=== PATIENT | female | born 1940 | race Caucasian/White ===

== ENCOUNTER 2017-06-24 08:33 | Emergency (ER) | payer OTHER ==
[~2017-06-24] VITALS: Ht 167.6 cm; Wt 72.6 kg
[~2017-06-24 08:33] MED LIST: ANTIVERT12.5 MG; ANTIVERT25 M1 PO; CEFTIN250 MG PO; DITROPAN5 MG PO; VITAMIN D2000 UNIT
[2017-06-25] MEDS ORDERED: LEVSIN/SL0.125 MG SL (07:47)
[2017-06-25] MEDS ORDERED: PEPCID40 MG PO (07:47)
== END 2017-06-25 09:44 | disposition home or self-care (01) ==
LOC: ER 08:33
DX: K52.9 Noninfective gastroenteritis and colitis, unspecified (principal)

== ENCOUNTER 2017-09-04 05:50 | Day surgery (SDC) | payer OTHER ==
[~2017-09-04 05:50] MED LIST changes: +LEVSIN/SL0.125 MG SL; +PEPCID40 MG PO
== END 2017-09-04 10:30 | disposition home or self-care (01) ==
LOC: CIR.AMB 05:50
DX: M77.12 Lateral epicondylitis, left elbow (principal)

== ENCOUNTER 2019-10-08 11:33 | Emergency (ER) | payer OTHER ==
[~2019-10-08] VITALS: Ht 162.6 cm; Wt 72.6 kg
== END 2019-10-08 16:36 | disposition home or self-care (01) ==
LOC: ER 11:33
DX: R42 Dizziness and giddiness (principal)

== ENCOUNTER 2020-07-14 14:41 | Inpatient (IN) | payer OTHER ==
[~2020-07-14] VITALS: Ht 167.6 cm; Wt 68.9 kg
[2020-07-17] MEDS ORDERED: PANTOPRAZOLE SO40 MG (07:50)
[2020-07-17] MEDS ORDERED: FLORAVANCE CAP1 EACH (07:50)
[2020-07-17] MEDS ORDERED: PRESERVISION A1 EAC1 (07:51)
[2020-07-17] MEDS ORDERED: MOMETASONE FURO15 G2 (07:51)
[2020-07-17] MEDS ORDERED: SUCRALFATE1 GM/10 ML (07:51)
[2020-07-17] MEDS ORDERED: RESTASIS1 EACH (07:51)
[2020-07-17] MEDS ORDERED: FLAXSEED OIL1000 MG (07:51)
[2020-07-17] MEDS ORDERED: SYSTANE BALANCE10 ML (07:52)
== END 2020-07-23 17:16 | disposition home or self-care (01) | DRG 392 ==
LOC: ER 14:41 → SEC-K 23:59 → SURH 23:59
PROVIDERS: ADMIT Internal Medicine; ATTEND Internal Medicine
PROC: BW21YZZ Computerized Tomography (CT Scan) of Abdomen and Pelvis using Other Contrast (ICD-10-PCS; principal; 2020-07-14)
PROC: B24BZZZ Ultrasonography of Heart with Aorta (ICD-10-PCS; 2020-07-14)
DX: K57.20 Diverticulitis of large intestine with perforation and abscess without bleeding (principal); R10.32 Left lower quadrant pain; R19.7 Diarrhea, unspecified; K21.9 Gastro-esophageal reflux disease without esophagitis; Z20.822 Contact with and (suspected) exposure to COVID-19

== ENCOUNTER 2020-09-05 06:39 | Day surgery (SDC) | payer OTHER ==
[~2020-09-05 06:39] MED LIST changes: +FLAXSEED OIL1000 MG; +FLORAVANCE CAP1 EACH; +MOMETASONE FURO15 G2; +PANTOPRAZOLE SO40 MG; +PRESERVISION A1 EAC1; +RESTASIS1 EACH; +SUCRALFATE1 GM/10 ML; +SYSTANE BALANCE10 ML
== END 2020-09-05 09:43 | disposition home or self-care (01) ==
LOC: AMB-ENDOS 06:39
PROVIDERS: ATTEND Surgery
DX: D12.2 Benign neoplasm of ascending colon (principal); Z20.822 Contact with and (suspected) exposure to COVID-19

== ENCOUNTER 2020-11-10 09:27 | Emergency (ER) | payer OTHER ==
[~2020-11-10] VITALS: Ht 167.6 cm; Wt 70.3 kg
== END 2020-11-10 19:57 | disposition home or self-care (01) ==
LOC: ER 09:27
DX: R10.13 Epigastric pain (principal); R07.89 Other chest pain

== ENCOUNTER 2020-12-05 10:00 | Inpatient (IN) | payer OTHER ==
[~2020-12-05] VITALS: Ht 167.6 cm; Wt 69.4 kg
[2020-12-11] MEDS ORDERED: VALACYCLOVIR1000 MG (08:34)
[2020-12-15] MEDS ORDERED: INTESTINEX680 M1 PO (08:28)
[2020-12-15] MEDS ORDERED: PROTONIX40 MG PO (08:29)
[2020-12-15] MEDS ORDERED: NABUMETONE750 MG PO (08:31)
[2020-12-15] MEDS ORDERED: BACTRIM DS TAB1 EACH PO (08:32)
[2020-12-15] MEDS ORDERED: ULTRACET PO (08:33)
== END 2020-12-15 15:22 | disposition home or self-care (01) | DRG 331 ==
LOC: SURH 12-11 06:05 → O/R 12-11 06:05 → SURH 12-11 09:00
PROVIDERS: ADMIT Surgery; ATTEND Surgery
PROC: 0DTN4ZZ Resection of Sigmoid Colon, Percutaneous Endoscopic Approach (ICD-10-PCS; 2020-12-11)
PROC: 0DTP4ZZ Resection of Rectum, Percutaneous Endoscopic Approach (ICD-10-PCS; principal; 2020-12-11 09:00)
DX: K57.20 Diverticulitis of large intestine with perforation and abscess without bleeding (principal); R10.32 Left lower quadrant pain; R19.4 Change in bowel habit; Z20.822 Contact with and (suspected) exposure to COVID-19

== ENCOUNTER 2020-12-10 19:44 | Emergency (ER) | payer OTHER ==
[~2020-12-10] VITALS: Ht 165.1 cm; Wt 68.0 kg
[2020-12-11] MEDS ORDERED: VALACYCLOVIR1000 MG (08:34)
== END 2020-12-11 00:59 | disposition home or self-care (01) ==
LOC: ER 19:44
DX: R19.7 Diarrhea, unspecified (principal)